=== PATIENT | female | born 2000 | race African-American/Black ===

== ENCOUNTER 2018-05-28 15:29 | Inpatient (IN) ==
[2018-05-28] MEDS ORDERED: BUTORPHANOL 2 MG/ML VIAL IV PRN (15:50)
[2018-05-28] MEDS ORDERED: LACTATED RINGERS 500 ML IV PRN (15:50)
[2018-05-28] MEDS ORDERED: ONDANSETRON 4 MG/2 ML VIAL IV PRN (15:50)
[2018-05-28] MEDS ORDERED: MEPERIDINE 50 MG/1 ML VIAL IV PRN (15:50)
[2018-05-28] MEDS ORDERED: DINOPROSTONE VAG GEL 10 MG SYRINGE VAG ONE (15:52)
[2018-05-28] MEDS: LACTATED RINGERS 1,000 ML IV SCH (16:20)
[2018-05-28 16:40] LABS: Basophils % 0.3 % (0.0-0.8); Eosinophils # 0.2 10*3/uL (0.0-0.87); Eosinophils % 1.7 % (0.00-10.9); Hematocrit 28.7 VOL% (35.7-47.0); Hemoglobin 9.1 GM/DL (12.0-16.0); Immature Granulocytes % 1.5 %; Immature Granulocytes Absolute 0.15 #; Lymphocytes # 1.5 10*3/uL (1.4-4.0); Lymphocytes % 14.6 % (21.3-54.2); Mean Corpuscular HGB Conc 31.7 GM/DL (32-36); Mean Corpuscular Hemoglobin 26 PG (27-34); Mean Corpuscular Volume 81.5 FL (87-102); Monocytes # 0.9 10*3/uL (0.11-0.8); Monocytes % 8.9 % (1.7-12.7); Neutrophils # 7.2 10*3/uL (1.4-7.4); Platelet Count 291 T/CUMM (130-400); Red Blood Count 3.52 MC/CUMM (3.8-5.5); Red Cell Distribution Width 14.7 % (9.3-17.3); White Blood Count 9.9 T/CUMM (4-12)
[2018-05-28] MEDS ORDERED: CITRIC ACID/SODIUM CITRATE 30 ML UDCUP PO ONE (17:57)
[2018-05-28] MEDS ORDERED: diphenhydrAMINE 50 MG/1 ML VIAL IV PRN (17:57)
[2018-05-28] MEDS ORDERED: FAMOTIDINE 20 MG/2 ML VIAL IV ONE (17:57)
[2018-05-28] MEDS ORDERED: NALOXONE 0.4 MG/ML VIAL IV PRN (17:57)
[2018-05-28] MEDS ORDERED: ONDANSETRON 4 MG/2 ML VIAL IV ONE (17:57)
[2018-05-28] MEDS ORDERED: ePHEDrine 50 MG/ML AMP IV PRN (17:57)
[2018-05-28] MEDS ORDERED: hydrOXYzine HCL 25 MG/1 ML VIAL IM PRN (17:57)
[2018-05-28] MEDS ORDERED: PROMETHAZINE 25 MG/1 ML VIAL IM ONE (17:57)
[2018-05-28] MEDS ORDERED: LACTATED RINGERS 1,000 ML IV ONE (17:57)
[2018-05-28] MEDS ORDERED: LACTATED RINGERS 1,000 ML IV SCH (18:00)
[2018-05-28] MEDS ORDERED: fentaNYL 2 MCG/ROPIV 0.2% EPID 100 ML EPIDURAL SCH (18:00)
[2018-05-29] MEDS ORDERED: OXYTOCIN/LR 20 UNIT/1,000 ML BAG IV SCH (02:00)
[2018-05-29] MEDS ORDERED: AMPICILLIN INJ 2,000 MG in SODIUM CHLORIDE 0.9% 100 ML IV ONE (02:00)
[2018-05-29] MEDS ORDERED: AMPICILLIN INJ 1,000 MG in SODIUM CHLORIDE 0.9% 100 ML IV SCH (06:00)
[2018-05-29] MEDS ORDERED: CITRIC ACID/SODIUM CITRATE 30 ML UDCUP PO ONE (10:00)
[2018-05-29] MEDS ORDERED: FAMOTIDINE 20 MG/2 ML VIAL IV ONE (10:00)
[2018-05-29] MEDS: LACTATED RINGERS 1,000 ML IV SCH (10:09)
[2018-05-29 12:33] LABS: Apearance,Urine CLEAR (Clear); Bilirubin,Urine Negative (Negative); Blood, Urine Negative (Negative); Glucose,Urine (UA) Negative (Negative); Ketones,Urine Negative (Negative); Mucus,Urine Occasional /LPF (Occasional); Nitrite,Urine Negative (Negative); Protein,Urine Negative; RBC,Urine <1 /HPF (0-4); Squamous Epithelial Cell,Urine Occasional /HPF (0-10); Urine Color Yellow (Yellow); Urine Urobilinogen < 2.0 EU/DL (0.2-1.0); WBC,Urine 2 /HPF (0-6)
[2018-05-29] MEDS ORDERED: OXYTOCIN 10 UNIT/ML VIAL IM ONE (16:40)
[2018-05-29] MEDS ORDERED: ceFAZolin 2,000 MG in PREMIX 1 EACH IV ONE (16:40)
[2018-05-29] MEDS ORDERED: OXYTOCIN/LR 30 UNIT/1,000 ML BAG IV ONE (16:40)
[2018-05-29] MEDS ORDERED: OXYTOCIN 10 UNIT/ML VIAL ONE ×2 (16:49→16:50)
[2018-05-29] MEDS ORDERED: RHO(D) IMMUNE GLOBULIN 300 MCG SYRINGE IM ONE (17:58)
[2018-05-29] MEDS ORDERED: OXYTOCIN/LR 20 UNIT/1,000 ML BAG IV ONE (17:58)
[2018-05-29] MEDS ORDERED: ACETAMINOPHEN 325 MG TABLET PO PRN (17:58)
[2018-05-29] MEDS ORDERED: SIMETHICONE CHEW 80 MG TABLET PO PRN (17:58)
[2018-05-29] MEDS ORDERED: ceFAZolin 1,000 MG in SYRINGE 1 EACH IV SCH (18:00)
[2018-05-29 18:09] LABS: Cord Arterial Blood HCO3 20.1 MMOL/L
[2018-05-29 18:12] LABS: Cord Venous Blood HCO3 19.6 MMOL/L; Cord Venous Blood PCO2 40.1 MMHG
[2018-05-29] MEDS: ONDANSETRON 4 MG/2 ML VIAL IV PRN (21:44)
[2018-05-30] MEDS: DOCUSATE SODIUM 100 MG CAPSULE PO SCH ×3 (02:20→21:14)
[2018-05-30] MEDS: ceFAZolin 1,000 MG in SYRINGE 1 EACH IV SCH ×2 (02:40→09:40)
[2018-05-30] MEDS: ONDANSETRON 4 MG/2 ML VIAL IV PRN (04:12)
[2018-05-30] MEDS ORDERED: diphenhydrAMINE CAP 25 MG CAPSULE PO PRN (05:44)
[2018-05-30] MEDS ORDERED: diphenhydrAMINE CAP 25 MG CAPSULE ONE (05:46)
[2018-05-30 06:35] LABS: Basophils % 0.2 % (0.0-0.8); Hemoglobin 8.9 GM/DL (12.0-16.0); Immature Granulocytes % 1.3 %; Immature Granulocytes Absolute 0.22 #; Lymphocytes % 6.1 % (21.3-54.2); Mean Corpuscular HGB Conc 30.7 GM/DL (32-36); Mean Corpuscular Hemoglobin 25 PG (27-34); Mean Corpuscular Volume 82.9 FL (87-102); Mean Platelet Volume 10.2 FL (9.6-12.0); Monocytes # 1.1 10*3/uL (0.11-0.8); Monocytes % 6.3 % (1.7-12.7); Neutrophils # 14.4 10*3/uL (1.4-7.4); Neutrophils % 86.1 % (38.7-73.9); Platelet Count 296 T/CUMM (130-400); Red Cell Distribution Width 14.8 % (9.3-17.3); White Blood Count 16.7 T/CUMM (4-12)
[2018-05-30] MEDS: MULTIVITAMIN (PRENATAL) TABLET PO SCH (09:08)
[2018-05-30] MEDS: MAGNESIUM HYDROXIDE SUSP 30 ML UDCUP PO PRN ×2 (09:08→21:14)
[2018-05-30] MEDS: LACTATED RINGERS 1,000 ML IV SCH ×2 (09:21)
[2018-05-30] MEDS: IBUPROFEN 800 MG TABLET PO PRN (16:56)
[2018-05-30] MEDS: METOCLOPRAMIDE 10 MG TABLET PO SCH (23:41)
[2018-05-31 07:05] LABS: HSV 1 PCR Negative (Negative); HSV 2 PCR Negative (Negative); Herpes Source VAGINA
[2018-05-31 07:15] VITALS: BP 132/69
[2018-05-31] MEDS: METOCLOPRAMIDE 10 MG TABLET PO SCH (07:29)
[2018-05-31] MEDS: IBUPROFEN 800 MG TABLET PO PRN (07:30)
[2018-05-31] MEDS: DOCUSATE SODIUM 100 MG CAPSULE PO SCH (09:40)
[2018-05-31] MEDS: MULTIVITAMIN (PRENATAL) TABLET PO SCH (09:40)
[2018-05-31] MEDS ORDERED: DIPH/TET/ACEL PERT BOOSTER VACCINE 0.5 ML VIAL IM ONE (10:22)
== END 2018-05-31 12:15 | disposition home or self-care (01) | DRG 766 ==
LOC: N.LDOUT 15:29 → N.LD 15:30 → N.OB 05-29 21:15
PROVIDERS: ADMIT Obstetrics & Gynecology; ATTEND Obstetrics & Gynecology
PROC: LDCSECT (ICD-10-PCS; 2018-05-29 17:00)